=== PATIENT | female | born 1970 | race Caucasian/White ===

== ENCOUNTER 2021-03-22 07:16 | Emergency (ER) | payer MEDICAID, SELFPAY ==
[2021-03-22 07:30] VITALS: BP 176/77; PULSE 78; RESP 12; TEMP 36.6; O2SAT 100
[2021-03-22 07:31] LABS: Glucose Point of Care 155 mg/dl (65-105)
[2021-03-22 08:01] VITALS: BP 150/68; PULSE 70; RESP 10; O2SAT 99
[2021-03-22 08:02] LABS: Basophils Absolute Auto 0.1 K/mm3 (0.0-0.1); Basophils Percent Auto 0.7 % (0.2-1.2); Eosinophils Absolute Auto 0.3 K/mm3 (0-0.3); Eosinophils Percent Auto 3.2 % (0-4.4); Hematocrit 29.7 % (37.0-47.0); Hemoglobin 9.5 g/dL (12.0-15.0); Immature Granulocyte Absolute 0.05 K/mm3 (0.00-0.031); Immature Granulocyte Percent A 0.6 % (0-0.5); Lymphocytes Absolute Auto 2.56 K/mm3 (0.9-3.2); Lymphocytes Percent Auto 31.3 % (18.3-44.2); Mean Corpuscular Hemoglobin 32.6 pg (26-34); Mean Corpuscular Volume 102.1 fl (80-100); Mean Platelet Volume 9.6 fl (7.4-10.4); Monocytes Absolute Auto 0.7 K/mm3 (0.1-0.6); Monocytes Percent Auto 8.3 % (2.6-8.5); Neutrophils Absolute Auto 4.6 K/mm3 (1.3-6.7); Neutrophils Percent Auto 55.9 % (45.5-73.1); Platelet Count Result 382 k/mm3 (150-375); Red Blood Count 2.91 M/mm3 (4.2-5.4); Red Cell Distribution Width 14.1 % (11.5-14.5); White Blood Count 8.2 K/mm3 (4.5-10.0)
[2021-03-22 08:06] LABS: Alanine Aminotransferase 58 U/L (4-35); Albumin Level 3.1 g/dL (3.5-5.1); Alkaline Phosphatase 331 U/L (38-126); Anion Gap 5 mmol/L (8-16); Aspartate Amino Transferase 53 U/L (14-36); Bilirubin,Total 0.1 mg/dL (0.2-1.3); Blood Urea Nitrogen 25 mg/dL (7-17); Calcium 9.1 mg/dL (8.4-10.2); Carbon Dioxide 27 mmol/L (22-30); Chloride 105 mmol/L (98-107); Estimated CRCL calculation 43 ml/min; Estimated Glomerular Filt Rate 59; Glucose 152 mg/dL (65-105); Magnesium 1.6 mg/dL (1.6-2.3); Phosphorus 4.4 mg/dL (2.5-4.5); Potassium 4.5 mmol/L (3.4-5.0); Sodium 137 mmol/L (137-145)
[2021-03-22 08:10] LABS: Beta-Hydroxybutyrate/Acetoacetate 0.07 mmol/L (0.02-0.27)
--- NOTE | 2021-03-22 08:19 | ED.GENADULT ---
HPI - General Adult General Chief complaint: Recheck/Abnormal Lab/Rx Stated complaint: blood sugar is high Time Seen by Provider: 03/22/21 07:25 History of Present Illness HPI narrative: Patient is a 50-year-old female who presents to the ER with concerns that her blood sugar is high. She reports she has been peeing a lot recently and had called her insurance after feeling like her blood sugar bottom out last night was high today. They referred her to the ER for further evaluation. Patient does not have a glucometer at home. She denies dysuria or lower abdominal pressure. No fevers or chills or sweats. She controls her blood sugar with Lantus and NovoLog. Related Data Home Medications Medication Instructions Recorded Confirmed insulin aspart U-100 [Novolog 3 unit SUBCUT TIDWMEAL 03/22/21 03/22/21 Flexpen U-100 Insulin] insulin glargine [Lantus U-100 10 unit SUBCUT DAILY 03/22/21 03/22/21 Insulin] Allergies Allergy/AdvReac Type Severity Reaction Status Date / Time No Known Allergies Allergy Verified 03/22/21 07:29 Review of Systems Review of Systems: All systems reviewed & are unremarkable except as noted in HPI and below Constitutional: Constitutional: Denies chills, Denies fever(s) and Denies weakness ENT: Denies nasal congestion and Denies sore throat Cardiovascular: Cardiovascular: Denies chest pain and Denies radiating jaw, neck or arm pain Respiratory: Respiratory: Denies cough and Denies dyspnea Gastrointestinal: Gastrointestinal: Denies abdominal pain, Reports nausea and Denies vomiting Genitourinary: Genitourinary: Denies hematuria, Denies nocturia and Denies dysuria Endocrine: Endocrine: Reports polydipsia and Reports polyuria [facility] Past Medical History Medical History (Updated 03/22/21 @ 09:44 by Keegan Barbour MD) CHF (congestive heart failure) Coronary artery disease Type 1 diabetes Surgical History Surgical History (Updated 03/22/21 @ 08:27 by Keegan Barbour MD) History of carotid endarterectomy Hx of CABG Social History Social History (Updated 03/22/21 @ 08:27 by Keegan Barbour MD) Substance use type: methamphetamine Gender identity (if verbalized by the patient): Female Exam Narrative: Exam Narrative: GENERAL: Chroncially ill-appearing, well-nourished, and in no acute distress. HEAD: Normocephalic, atraumatic. ENT: Mucous membranes moist. CHEST: Clear to auscultation. No respiratory distress. HEART: Regular rate and rhythm. Normal peripheral pulses. ABDOMEN: Soft, nontender, nondistended. EXTREMITIES: Normal range of motion. 2+ edema. SKIN: Warm, dry, no rash. NEURO: Alert and oriented x3. Course Course Emergency Course: Feels improved with Zofran and fluids. Informed results. Discharge home. Vital Signs Vital signs: Vital Signs Temperature 97.9 F 03/22/21 07:30 Pulse Rate 78 03/22/21 07:30 Respiratory Rate 12 03/22/21 07:30 Blood Pressure 176/77 H 03/22/21 07:30 Pulse Oximetry 100 03/22/21 07:30 Temperature 97.9 F 03/22/21 07:30 Pulse Rate 67 03/22/21 09:01 Respiratory Rate 14 03/22/21 09:01 Blood Pressure 178/72 H 03/22/21 09:01 Pulse Oximetry 96 03/22/21 09:01 Medical Decision Making Vital Signs Vital Signs: Vital Signs Temperature 97.9 F 03/22/21 07:30 Pulse Rate 78 03/22/21 07:30 Respiratory Rate 12 03/22/21 07:30 Blood Pressure 176/77 H 03/22/21 07:30 Pulse Oximetry 100 03/22/21 07:30 Temperature 97.9 F 03/22/21 07:30 Pulse Rate 67 03/22/21 09:01 Respiratory Rate 14 03/22/21 09:01 Blood Pressure 178/72 H 03/22/21 09:01 Pulse Oximetry 96 03/22/21 09:01 Lab Data Result diagrams: 03/22/21 07:43 03/22/21 07:43 Labs: Lab Results 03/22/21 03/22/21 03/22/21 Range/Units 07:29 07:43 07:43 WBC 8.2 (4.5-10.0) K/mm3 RBC 2.91 L (4.2-5.4) M/mm3 Hgb 9.5 L (12.0-15.0) g/dL Hct 29.7 L (37.0-47.0) % MCV
[2021-03-22 08:26] LABS: Add Urine Microscopic? YES; Appearance Urine Clear (Clear); Bacteria Urine Trace /hpf; Bilirubin Urine Negative (Negative); Blood Urine Negative (Negative); Color Urine Straw (Yellow); Glucose Urine UA Negative (Negative); Ketones Urine Negative (Negative); Leukocyte Esterase Ur Negative LEU/UL (Negative); Mucus Urine Rare /lpf; Nitrate Urine Negative (Negative); Protein Urine 3+ mg/dL (Negative); RBC Urine 0-2 /hpf (0-2); Specific Grav Ur 1.011 (1.001-1.035); Squamous Epithelial Cell Urine Occasional /hpf (Few); Urobilinogen Urine Negative mg/dL (<2.0)
[2021-03-22 08:31] VITALS: BP 167/72; PULSE 68; RESP 12; O2SAT 98
[2021-03-22 08:46] VITALS: BP 174/70; PULSE 68; RESP 13; O2SAT 97
[2021-03-22] MEDS: ONDANSETRON INJ 4 MG/2 ML VIAL IV PUSH (08:49)
[2021-03-22] MEDS: SODIUM CHLORIDE 0.9% IV 500 ML 999 ML IV CONT (08:49)
[2021-03-22 09:01] VITALS: BP 178/72; PULSE 67; RESP 14; O2SAT 96
[2021-03-22 09:16] VITALS: BP 179/77; PULSE 69; RESP 13; O2SAT 96
== END 2021-03-22 09:55 | disposition home or self-care (01) ==
PROVIDERS: Emergency Provider Emergency Medicine
DX: R11.0 Nausea (principal); E10.9 Type 1 diabetes mellitus without complications; I50.9 Heart failure, unspecified; I25.10 Atherosclerotic heart disease of native coronary artery without angina pectoris; Z95.1 Presence of aortocoronary bypass graft
CPT/HCPCS: 36415; 80053; 81001; 81025; 82010; 82948; 83735; 84100; 85025; 96361; 96374; 99284; J2405; J7040